=== PATIENT | male | born 1930 | race Caucasian/White ===

== ENCOUNTER 2017-04-01 10:05 | Outpatient (CLI) | payer MEDICARE ==
[2017-04-01 10:57] LABS: Prothrombin Time 46.1 SEC (12.0-14.7)
[2017-04-01 11:08] LABS: INR-International Normal Ratio 4.6
== END 2017-04-01 10:06 | disposition home or self-care (01) ==
LOC: BURLAB 10:05
PROVIDERS: ATTEND Family Medicine
DX: I63.9 Cerebral infarction, unspecified (principal)
CPT/HCPCS: 36415; 85610

== ENCOUNTER 2017-04-05 10:35 | Outpatient (CLI) | payer MEDICARE ==
[2017-04-05 11:04] LABS: INR-International Normal Ratio 1.7; Prothrombin Time 20.8 SEC (12.0-14.7)
== END 2017-04-05 10:36 | disposition home or self-care (01) ==
LOC: BURLAB 10:35
PROVIDERS: ATTEND Family Medicine
DX: I63.9 Cerebral infarction, unspecified (principal)
CPT/HCPCS: 36415; 85610